=== PATIENT | female | born 1950 | race Caucasian/White ===

== ENCOUNTER 2016-06-02 13:55 | Emergency (ER) | payer OTHER ==
[2016-06-02 13:57] VITALS: BP 177/79
[2016-06-02] MEDS ORDERED: DUONEB (A & A) INH ONE (14:19)
[2016-06-02] MEDS ORDERED: NORCO-5 PO ONE (14:20)
--- NOTE | 2016-06-02 14:20 | PROVIDER DOCUMENTATION ---
HPI-Musculoskeletal Pain/Inj - GENERAL Chief Complaint: Fall Stated Complaint: fall Time Seen by Provider: 06/02/16 14:05 Source: patient - HX OF PRESENT ILLNESS-MUSKULOSKELTAL Nature of Presenting Problem: Pt is a 65 y/o F c chief complaint of R wrist pain, R lateral hip pain after a mechanical trip and fall while at the [facility]. Pt denies head injury or LOC. Pt states she was able to walk after the fall. On arrival, pt is in minimal distress. Additionally, pt has wheezing and she states that her COPD is exacerbated by stress. Review of Systems - Adult - REVIEW OF SYSTEMS - ADULT Constitutional: reports: no symptoms reported. denies: chills, fatique Eyes: reports: no symptoms reported. denies: blurred vision, double vision Ears, Nose, Mouth & Throat: reports: no symptoms reported. denies: ear pain, nose pain, throat pain Cardiovascular: reports: no symptoms reported. denies: chest pain, orthopnea Respiratory: reports: wheezing. denies: cough Gastrointestinal: reports: no symptoms reported. denies: abdominal pain, nausea Genitourinary: reports: no symptoms reported. denies: flank pain, hematuria Musculoskeletal: reports: no symptoms reported. denies: bone pain, joint pain Integumentary: reports: no symptoms reported. denies: itching, rash Neurological: reports: no symptoms reported. denies: numbness, paresthesia Psychiatric: reports: no symptoms reported. denies: anxiety, emotional problems Endocrine: reports: no symptoms reported. denies: cold intolerance, heat intolerance Hematologic/Lymphatic: reports: no symptoms reported. denies: blood clots, low blood count Allergic/Immunologic: reports: no symptoms reported. denies: allergic reactions , food allergy All Other Systems: Reviewed and Negative Past History - Adult - PAST MEDICAL HISTORY-ADULT Review of Records: reports: Old Records Reviewed, Nursing Assessment Review, Medications Reviewed, Social history reviewed & non-contributory. Major Childhood Illnesses: reports: denies history Cardiovascular: reports: CAD, CHF, HTN, hyperlipidemia Respiratory: reports: COPD Gastrointestinal: reports: denies history Obstetrical/Gynecological: reports: denies history Genitourinary: reports: denies history Musculoskeletal: reports: denies history Neurological: reports: denies history Endocrine/Immune: reports: Diabetes Other Conditions: reports: denies history - PRIOR SURGERIES/PROCEDURES Surgical/Procedure History: reports: CABG, , orthopedic (extremity) ( right arm), other (abdominal abscess after C-sect) - PRIOR HOSPITALIZATIONS Prior Hospitalizations: reports: for similar symptoms - IMMUNIZATION STATUS Childhood Immunizations: See Nurse Assessment Flu Vaccine: See Nurse Assessment - FAMILY HISTORY Family History: reviewed, not pertinent - SOCIAL HISTORY Smoking: quit greater than 1 year, cigarettes Substance Use: none/never Alcohol Use Frequency: never Living Situation: family Physical Exam-Injury Related - Physical Exam-Injury Related Initial Vital Signs Reviewed: Yes General Appearance: appears well, alert, no apparent distress Eyes: PERRL/EOMI, pink conjunctivae Head, Ears, Nose, Mouth & Throat: normocephalic/atraumatic, moist mucous membranes, normal ENT inspection Neck: non-tender, full range of motion, supple Respiratory: chest non-tender, wheezing Cardiovascular: normal peripheral pulses, regular rate, rhythm, no edema Abdominal Exam: normal bowel sounds, non tender, soft Lymphatic: no adenopathy, axilla node tender, cervical node tenderness Back Exam: normal inspection, no CVA tenderness, no vertebral tenderness Extremity: tenderness (R WRIST, R LATERAL HIP) Integumentary: normal color, warm/dry, blanching Neurologic: grossly normal, no motor/sensory deficits Psych/Mental Status: normal mood/affect, normal thought content, normal thought process, oriented x 3 - Gl[place]ow Coma Score Best Eye Response ([place]): (4) open spontaneously Best Verbal Response ([place]): (5) oriented Best Motor Response ([place]): (6) obeys commands Progress - PLAN OF CARE/RESULTS Progress/Plan/Lab Results: Orders Category Date Time Status Wrist Splint DIRECTED Care 06/02/16 14:54 Active WRIST COMPLETE RIGHT [RAD] Stat Exams 06/02/16 14:18 Completed XRAY PELVIS W/HIP 2-3VW RT [RAD] Stat Exams 06/02/16 14:18 Completed Albuterol 2.5MG/Ipratrop 0.5MG [Duoneb (A & A)] Med 06/02/16 14:19 Discontinued 6 ml INH NOW ONE Hydrocodone/APAP 5 mg/325 mg [[place]-5] Med 06/02/16 14:20 Discontinued 1 each PO NOW ONE Aerosol Treatments Routine Oth 06/02/16 14:19 Completed Aerosol Treatments Stat Oth 06/02/16 14:19 Completed Vital Signs - 24 hr 06/02/16 06/02/16 13:55 14:37 Temperature 97.7 F Pulse Rate 67 67 Respiratory 20 18 Rate Blood Pressure 177/79 O2 Sat by Pulse 98 95 Oximetry - XRAY 1 XRAY: Right XRAY Study: Wrist Impression: Normal (no fx - Dr. Vergara) 2 XRAY: Right XRAY Study: Hip Impression: Normal (No acute disease - Dr. Vergara) Departure - Departure Time of Disposition Order: 15:18 DIAGNOSIS: Fall Qualifiers: Encounter type: initial encounter Qualified Code(s): W19.XXXA - Unspecified fall, initial encounter Contusion of hip, right Qualifiers: Encounter type: initial encounter Qualified Code(s): S70.01XA - Contusion of right hip, initial encounter Strain of wrist, right Qualifiers: Encounter type: initial encounter Qualified Code(s): S66.911A - Strain of unspecified muscle, fascia and tendon at wrist and hand level, right hand, initial encounter Disposition: HOME 01 Certified Medical Emergency: Emergent Condition: Stable Additional Instructions: ED Follow Up Instructions: You have been treated by a care provider in the Emergency Department. These instructions are being provided to you so you can have an understanding of how to care for yourself upon discharge. Upon discharge from the Emergency Department, you are responsible for making arrangements for follow-up care by a physician of your choice. Take all prescribed medications as directed. Return to the Emergency Department immediately for any new or worsening symptoms. You may call the Physician Referral phone number at [phone] to obtain a list of Physicians who are taking new patients. Referrals: Hellen Cheema MD [STAFF PHYSICIAN] - Instructions: Fall Prevention and Home Safety, [id number], Contusion, Easy-to -Read, Wrist Pain, [id number] Attestation - Physician/ JANUSZ Attestation Patient care was provided by Advanced Practice Provider:: Yes Advanced Practice Provider:: Frankie Taylor Advanced Practice Provider documentation review:: The Mid-level provider documentation, treatment plan and medical decision making was reviewed by the physician who agrees with all treatment and medical decision making by the P.
--- NOTE | 2016-06-02 15:09 | Diag Imaging Result Document ---
PROCEDURE NAME: WRIST COMPLETE RIGHT - 06/02/2016 RIGHT WRIST 3 VIEWS: FINDINGS: There are degenerative changes particularly in the metacarpocarpal joints laterally. There is no evidence of acute fracture or dislocation. There is some widening of the scapholunate joint space which may indicate ligamentous disruption. IMPRESSION: 1. Degenerative changes as described. 2. No evidence of fracture.
--- NOTE | 2016-06-02 15:11 | Diag Imaging Result Document ---
PROCEDURE NAME: XRAY PELVIS W/HIP 2-3VW RT - 06/02/2016 AP PELVIS AND RIGHT HIP, 2 VIEWS: FINDINGS: The hip joint spaces are well maintained. There is no evidence of acute fracture or dislocation. Some deformity of the right side of the pelvis is present possibly due to previous trauma. Compared to the previous KUB dated 11/22/2015, this appearance has not changed significantly. IMPRESSION: No acute disease.
== END 2016-06-02 15:22 | disposition home or self-care (01) ==
LOC: EDBD → ED 13:55
DX: S70.01XA Contusion of right hip, initial encounter (principal); S66.911A Strain of unspecified muscle, fascia and tendon at wrist and hand level, right hand, initial encounter; M25.531 Pain in right wrist; M25.551 Pain in right hip; R06.2 Wheezing; I25.10 Atherosclerotic heart disease of native coronary artery without angina pectoris; I50.9 Heart failure, unspecified; I10 Essential (primary) hypertension; Z79.899 Other long term (current) drug therapy; E78.5 Hyperlipidemia, unspecified; J44.9 Chronic obstructive pulmonary disease, unspecified; E11.9 Type 2 diabetes mellitus without complications; Z79.01 Long term (current) use of anticoagulants; Z79.82 Long term (current) use of aspirin; Z95.1 Presence of aortocoronary bypass graft; Z87.891 Personal history of nicotine dependence; W01.0XXA Fall on same level from slipping, tripping and stumbling without subsequent striking against object, initial encounter
CPT/HCPCS: 94640